=== PATIENT | male | born 1995 | race Caucasian/White ===

== ENCOUNTER 2016-04-11 15:28 | Emergency (ER) | payer BC ==
[2016-04-11 16:36] VITALS: BP 154/77
--- NOTE | 2016-04-11 17:37 | UC ---
Complaint Male HPI - HPI Summary HPI Summary: 5 DAYS OF RIGHT TESTICULAR PAIN. CONSTANT DULL PAIN. NO URINARY SYMPTOMS. NOT CONCERNED ABOUT STD. NO PENILE D/C. NO FEVER, NAUSEA OR ABDOMINAL PAIN. HAS BEEN DOING A LOT OF PHYSICAL THERAPY S/P KNEE SURGERY AND LIFTS WEIGHTS. - History of Current Complaint Chief Complaint: UCGU Stated Complaint: PERSONAL Time Seen by Provider: 04/11/16 17:16 Hx Obtained From: Patient Onset/Duration: Gradual Onset, Lasting Days, Still Present Timing: Constant Severity Initially: Mild Severity Currently: Mild Pain Intensity: 2 Pain Scale Used: 0-10 Numeric Location: Scrotum Character: Constant Pressure Aggravating Factor(s): Palpation Alleviating Factor(s): Nothing Associated Signs And Symptoms: Negative: Diaphoresis, Back Pain, Fever, Dysuria , Constipation, Rectal Pain, Appetite, Nausea, Penile Swelling, Penile Discharge - Allergies/Home Medications Allergies/Adverse Reactions: Allergies Allergy/AdvReac Type Severity Reaction Status Date / Time Amoxicillin Allergy Hives Verified 04/11/16 16:36 Cefprozil [From Cefzil] Allergy Hives Verified 04/11/16 16:36 Home Medications: Home Medications Dexmethylphenidate HCl [Focalin Xr] 10 mg PO DAILY 04/11/16 [History Confirmed 04/11/16] PMH/Surg Hx/FS Hx/Imm Hx - Additional Past Medical History Additional PMH: ADD - Surgical History Surgical History: Yes Surgery Procedure, Year, and Place: right knee- 01/2016, tonsils, left breast cysts removed when young - Family History Known Family History: Negative: Hypertension - Social History Alcohol Use: Occasionally Substance Use Type: Marijuana Substance Use Comment - Amount & Last Used: occasional Smoking Status (MU): Never Smoked Tobacco Review of Systems Constitutional: Negative Skin: Negative Respiratory: Negative Cardiovascular: Negative Gastrointestinal: Negative Genitourinary: Other - RIGHT GROIN/TESTICULAR DISCOMFORT All Other Systems Reviewed And Are Negative: Yes Physical Exam Triage Information Reviewed: Yes Appearance: Well-Appearing, No Pain Distress, Well-Nourished Vital Signs: Initial Vital Signs Temp 99.2 F 04/11/16 16:20 Pulse 76 04/11/16 16:20 Resp 16 04/11/16 16:20 BP 154/77 04/11/16 16:20 Pulse Ox 100 04/11/16 16:20 Vital Signs Reviewed: Yes Eyes: Positive: Conjunctiva Clear ENT: Positive: Hearing grossly normal Neck: Positive: Supple Respiratory: Positive: No respiratory distress, No accessory muscle use Cardiovascular: Positive: Pulses Normal Abdomen Description: Positive: Soft Musculoskeletal: Positive: No Edema Neurological Exam: Normal Psychological: Positive: Age Appropriate Behavior Skin: Negative: rashes UC Physical Exam Vital Signs On Initial Exam: Initial Vitals Temp Pulse Resp BP Pulse Ox 99.2 F 76 16 154/77 100 04/11/16 16:20 04/11/16 16:20 04/11/16 16:20 04/11/16 16:20 04/11/16 16:20 - Genitalia Exam Male Genitalia: Circumcised, Other - POSSIBLE RIGHT INGUINAL HERNIA PALPATED Male Genitalia Cont.: Bilateral: Testicles Descended, Testicles Non-Tender, Testicles w/o Swelling, Scrotum Non-Tender, Scrotum Without Erythema Complaint Male Course/Dx - Differential Dx/Diagnosis Provider Diagnoses: POSSIBLE RIGHT INGUINAL HERNIA Discharge - Discharge Plan Condition: Stable Disposition: HOME Patient Education Materials: Inguinal Hernia (ED) Referrals: Non Staff,Doctor [Primary Care Provider] - Additional Instructions: YOU MAY HAVE AN INGUINAL HERNIA. FOLLOW-UP WITH YOUR PCP IN [place] FOR FURTHER EVALUATION. YOU MAY BENEFIT FROM IMAGING - ULTRASOUND OR CT SCAN TO FURTHER EVALUATE YOUR DISCOMFORT. GO TO THE ER WITHOUT FAIL IF YOU DEVELOP WORSENING PAIN THAT DOES NOT REMIT, A BULGE THAT CAN NOT BE REDUCED, FEVER, NAUSEA OR ANY OTHER CONCERNING SYMPTOMS.
== END 2016-04-11 17:47 | disposition home or self-care (01) ==
LOC: UCCORT 15:28
DX: N50.811 Right testicular pain (principal); R10.31 Right lower quadrant pain; R03.0 Elevated blood-pressure reading, without diagnosis of hypertension; Z88.1 Allergy status to other antibiotic agents; Z88.0 Allergy status to penicillin; F12.90 Cannabis use, unspecified, uncomplicated
CPT/HCPCS: 99201; G0463